=== PATIENT | female | born 1955 | race Caucasian/White ===

== ENCOUNTER 2017-08-11 08:04 | Day surgery (SDC) | payer OTHER ==
[~2017-08-11] VITALS: Ht 154.9 cm; Wt 96.1 kg
[2017-08-11] VITALS (10 sets, daily range): BP systolic 95–150; BP diastolic 65–99; PULSE 54–70; RESP 14–18; Ht 154.9 cm; Wt 96.1 kg
[2017-08-11] MEDS ORDERED: METO-429 PO (08:37)
[2017-08-11] MEDS ORDERED: SIMV20TA PO (08:38)
[2017-08-11] MEDS ORDERED: AMIO200T2 PO (08:38)
[2017-08-11] MEDS ORDERED: APIX5TAB PO (08:40)
[2017-08-11] MEDS ORDERED: POTA10TA37 PO (08:41)
[2017-08-11] MEDS ORDERED: DIGO125T6 PO (08:41)
[2017-08-11] MEDS ORDERED: FURO20TA3 PO (08:42)
--- NOTE | 2017-08-11 09:06 | RADRPT ---
PROCEDURE: XR Chest. CLINICAL INDICATION: PREOP TECHNIQUE: AP portable chest COMPARISON: None. FINDINGS: The heart is markedly enlarged. There is atherosclerosis of the aorta. No evidence of pulmonary vasc ular congestion acute lung consolidation pleural effusions and pneumothorax. IMPRESSION: Cardiomegaly without congestive heart failure or pneumonia. RPTAT:AAJJ Physician Ana Date Time Electronically viewed and signed by Charlotte Jones Physician on 08/11/2017 09:06 BM/
[2017-08-11 09:10] LABS: BASOPHIL # 0.1 10^3/ul (0.0-0.1); BASOPHILS % 0.6 % (0.0-2.0); EOSINOPHILS # 0.1 10^3/ul (0.0-0.5); EOSINOPHILS % 1.1 % (0.0-7.0); HEMATOCRIT 42.8 % (37.0-47.0); HEMOGLOBIN 13.6 g/dl (12.0-16.0); LYMPHOCYTES # 1.7 10^3/ul (0.8-2.9); MEAN CORPUSCULAR HEMOGLOBIN 29.1 pg (29.0-33.0); MEAN CORPUSCULAR HGB CONC 31.8 g/dl (32.0-37.0); MEAN CORPUSCULAR VOLUME 91.6 fl (82.0-101.0); MEAN PLATELET VOLUME 12.6 fl (7.4-10.4); MONOCYTES % 7.2 % (0.0-11.0); NEUTROPHIL # 10.3 10^3/ul (1.6-7.5); NEUTROPHILS % 77.6 % (39.0-77.0); PLATELET COUNT 194 10^3/UL (140-415); RED BLOOD COUNT 4.67 10^6/ul (4.20-5.40); RED CELL DISTRIBUTION WIDTH 14.7 % (11.5-14.5)
[2017-08-11 09:18] LABS: HOLD TRANSMISSIONS 1
[2017-08-11 09:25] LABS: WHITE BLOOD COUNT 13.3 10^3/ul (4.8-10.8)
[2017-08-11 09:30] LABS: ALBUMIN/GLOBULIN RATIO 1.17; BILIRUBIN,INDIRECT 0.7 mg/dl (0-1.1); BILIRUBIN,TOTAL 0.7 mg/dl (0.2-1.3); CHOL/HDL RATIO 3.8 RATIO; TOTAL PROTEIN 7.4 g/dl (6.1-8.1)
[2017-08-11 09:31] LABS: CALCIUM 9.1 mg/dl (8.4-10.2); CREATININE 1.63 mg/dl (0.44-1.00); POTASSIUM 4.7 mmol/L (3.5-5.1)
[2017-08-11 10:47] LABS: INR 0.95; PROTIME 12.8 Sec (11.9-14.9)
[2017-08-11 10:48] LABS: PARTIAL THROMBOPLASTIN TIME 27.1 Sec (25.0-35.0)
[2017-08-11] MEDS ORDERED: FENTAnyl 50 MCG/ML VIAL ONE (11:09)
[2017-08-11] MEDS ORDERED: LIDOCAINE 1% (MDV) 20 ML INJ ONE (11:09)
[2017-08-11] MEDS ORDERED: IODIXANOL LOCM 100 ML BTL ONE (11:09)
[2017-08-11] MEDS ORDERED: HEPARIN 1000 UNITS/ML 10 ML INJ ONE (11:09)
[2017-08-11] MEDS ORDERED: NITROGLYCERIN (IC) 100 MCG/ML INJ ONE (11:11)
[2017-08-11] MEDS ORDERED: VERAPAMIL 5 MG INJ ONE (11:12)
[2017-08-11] MEDS ORDERED: SOD CHLORIDE 0.9% 1,000 ML IV SCH (12:14)
--- NOTE | 2017-08-11 12:18 | SIPON ---
Date/Time of Note Date/Time of Note DATE: 08/11/17 TIME: 12:17 Operative Report Preoperative Diagnosis 1.Aortic stenosis 2.abnl mpi Postoperative Diagnosis 1.Non-obstructive cad 2.Aortic stenosis Operation/Procedure Performed 1.[facility] 2.[facility] Surgeon see signature line architectural administrative assistant 1.Justin Anesthesia: moderate sedation Estimated blood loss: minimal Transfusion Required none Specimen NA Grafts/Implants none Complications none VANDANA YOUNG Aug 11, 2017 12:18
[2017-08-11] MEDS ORDERED: morphine 2 MG INJ IV PRN (12:30)
[2017-08-11] MEDS ORDERED: ACETAMINOPHEN 325 MG TAB PO PRN (12:30)
[2017-08-11] MEDS ORDERED: AL HYDROX/MG HYDROX/SIMETH 30 ML CUP PO PRN (12:30)
[2017-08-11] MEDS ORDERED: ONDANSETRON 4 MG INJ IV PRN (12:30)
--- NOTE | 2017-08-11 13:28 | CARRPT ---
DATE OF PROCEDURE: 08/11/2017 TYPE OF PROCEDURE: 1. Left heart catheterization. 2. Right heart catheterization. 3. Femoral angiography. 4. Perclose closure device to right femoral artery. ATTENDING PHYSICIAN: Vandana Dumont MD REFERRING PHYSICIAN: Dr. Jann Sotelo. INDICATION: Aortic stenosis, abnormal cardiac stress test. TYPE OF ANESTHESIA: Conscious and local. BRIEF HISTORY: Ms. Estevez is a 62-year-old female with history of hypertension, dyslipidemia who initially had complaints of dyspnea on exertion, underwent 2D echo revealing probable severe aortic stenosis, ____ ischemia, referred for left heart catheterization to assess for significant obstructi ve coronary artery disease and to further assess the patient's ____ possible. DESCRIPTION OF PROCEDURE: After informed consent was obtained, the patient went to [facility] cardiac catheterization lab where her right groin was prepped and draped in usual steri le fashion. Lidocaine 2% was instilled in right groin in order to achieve adequate anesthesia. Wit h modified Seldinger technique, the patient's right coronary was cannulated and a 7-Slovenian venous sh eath was placed. Subsequently, using modified Seldinger technique, the patient's right femoral lillian ry was cannulated and a 6-[place]oven[place] arterial sheath was placed. A ____ [place] catheter was then used to pass the IVC and maintain pressures in the RA, RV, PA, and finally pulmonary capillary wedge positio n using the thermodilution method. The patient's cardiac output was determined and the catheter was removed. Subsequently, at this time a JL4 was used to cannulate the left main coronary ostium. Wi contrast injection, multiple views of the left coronary arterial system were obtained. JL4 was r emoved over a guidewire and a JR4 was used to cannulate the right coronary to ostium. With contrast injection, multiple views of the right coronary system were obtained. JR4 was then left in place a nd using a straight wire we attempted to cross the aortic valve, unsuccessfully, and then exchanged this for an AL and continued to use the straight wire unsuccessfully. We then tried a Glidewire and this, once again, was unsuccessful. At this time, again, the findings of a heavily calcified valve with inability to cross, this terminated the procedure. The patient had a femoral angiogram done r evealing the sheath to be placed in the right common femoral artery. Subsequently, this was removed and a 6-[place]oven[place] Perclose device was used to seal the vesicle completing the procedure. There were n o noted complications. FINDINGS: CORONARY ANGIOGRAPHY: Left main 5 mm, no significant stenoses. Circumflex proximally is a 3 mm ves clifford and has no significant focal stenoses, has multiple proximal to mid branching obtuse marginals x 3 all approximately 2 mm with no significant focal stenoses. The patient's circumflex is at least a codominant vessel and gives off a small PDA 2.5 mm with no significant focal stenoses. LAD proxima lly is a 3.5 mm vessel and has no significant focal stenoses in its proximal portion. Thereafter it has a 20% stenosis in mid portion. The main LAD is free of significant focal stenoses, goes around the apex. There is a proximal branching diagonal sub 2 mm vessel and several mid branch diagonals, all sub 2 mm vessels with no significant focal stenoses. The right coronary artery proximally is a 3 mm vessel and has mild luminal irregularities up to approximately 20% in its mid portion. It giv es off a small PDA 2 mm with no significant focal stenoses and a posterolateral branch 2 mm with no significant focal stenoses. Right heart catheterization revealed a right atrial pressure of 7 and a right ventricular pressure o f 35/19, an RV pressure of 71. Pulmonary arterial pressure of 72/25. Pulmonary cap wedge pressure of 27. Cardiac output 4.4 and a cardiac index not yet reported. Aortic valve area not yet calculat ed was unable to cross, it was heavily calcified. TOTAL FLUOROSCOPY TIME: 19 minutes. TOTAL CONTRAST: 60 mL. IMPRESSION: 1. Mild nonobstructive coronary artery disease. 2. Elevated right heart filling pressures and moderately LV filling pressures. 3. Severe aortic stenosis by echo and additionally by fluoroscopy due to heavy calcification. RECOMMENDATIONS: 1. In light of procedure findings, at this time, refer patient for aortic valve replacement. 2. Patient will be monitored in same day surgery with probable discharge later this afternoon. 3. Patient will have a follow up appointment in our office at which time we will discuss the outcom e of the procedure and assess for any post-catheterization groin complications. Dictated By: VANDANA SWEET/GABINO Conf#: [id number] [facility]#: [id number]
--- NOTE | 2017-08-12 10:29 | RADRPT ---
Vent Rate: 57 bpm RR Interval: 0 msec [place] Interval: 0 msec QRS Duration: 90 msec QT Interval: 416 msec QTC Interval: 404 msec P-R-T [place]: 0 - -3 - 168 degrees Atrial fibrillation with slow ventricular response ST amp; T wave abnormality, consider inferolateral ischemia Abnormal ECG Electronically Signed By: Juan Espinosa [id number]
== END 2017-08-11 17:34 | disposition home or self-care (01) ==
LOC: SDS 08:04
PROVIDERS: ATTEND Internal Medicine
DX: I35.0 Nonrheumatic aortic (valve) stenosis (principal); R94.39 Abnormal result of other cardiovascular function study; I25.10 Atherosclerotic heart disease of native coronary artery without angina pectoris; I48.91 Unspecified atrial fibrillation; I10 Essential (primary) hypertension; E78.5 Hyperlipidemia, unspecified; E78.00 Pure hypercholesterolemia, unspecified; Z88.0 Allergy status to penicillin
CPT/HCPCS: 71010; 80053; 80061; 85025; 85610; 85730; 93005; 93453; J1644; J3010; Q9967; Z7610